=== PATIENT | female | born 1965 | race Caucasian/White ===

== ENCOUNTER 2018-10-17 15:38 | Emergency (ER) | payer OTHER, MEDICAID ==
[~2018-10-17] VITALS: Ht 167.6 cm; Wt 93.0 kg
[2018-10-17 16:00] VITALS: BP 139/85
--- NOTE | 2018-10-17 16:00 | NUR ---
PER CAREGIVER [place] [facility] HAVE BEEN CONTACTED ALREADY ABOUT SITUATION.
--- NOTE | 2018-10-17 16:00 | NUR ---
PT TRIAGED AND SENT TO ER LOBBY
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
--- NOTE | 2018-10-17 16:26 | NUR ---
PT WHEELCHAIRED TO ER BED 5 BY CAREGIVER
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
== END 2018-10-17 17:01 | disposition home or self-care (01) ==
LOC: MED 15:38
DX: T76.21XA Adult sexual abuse, suspected, initial encounter (principal); E66.9 Obesity, unspecified; E03.9 Hypothyroidism, unspecified; G40.909 Epilepsy, unspecified, not intractable, without status epilepticus; Z88.5 Allergy status to narcotic agent; Z88.8 Allergy status to other drugs, medicaments and biological substances; X58.XXXA Exposure to other specified factors, initial encounter
CPT/HCPCS: 99283